=== PATIENT | male | born 1975 | race Caucasian/White ===

== ENCOUNTER 2025-03-02 06:56 | Emergency (ER) | payer OTHER ==
[~2025-03-02] VITALS: Ht 175.3 cm; Wt 90.0 kg
[2025-03-02] MEDS ORDERED: HYDROCODON-ACE1 EAC8 PO (09:56)
[2025-03-02 10:39] VITALS: BP 128/74
== END 2025-03-02 10:40 | disposition home or self-care (01) ==
LOC: ED 06:56
DX: S46.002A Unspecified injury of muscle(s) and tendon(s) of the rotator cuff of left shoulder, initial encounter (principal); X50.0XXA Overexertion from strenuous movement or load, initial encounter
CPT/HCPCS: 73030; 99283